=== PATIENT | female | born 1960 | race African-American/Black ===

== ENCOUNTER 2016-09-11 15:56 | Emergency (ER) | payer OTHER, BC ==
[~2016-09-11] VITALS: Ht 160 cm; Wt 96.6 kg
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
[2016-09-11 16:35] VITALS: BP 142/80
[2016-09-11] MEDS ORDERED: IBUP-1060 PO (16:36)
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
== END 2016-09-11 16:56 | disposition home or self-care (01) ==
LOC: ER 15:56
DX: S63.501A Unspecified sprain of right wrist, initial encounter (principal); S00.511A Abrasion of lip, initial encounter; V43.62XA Car passenger injured in collision with other type car in traffic accident, initial encounter; Y93.89 Activity, other specified; Y92.410 Unspecified street and highway as the place of occurrence of the external cause; Y99.8 Other external cause status
CPT/HCPCS: 29125; 73110; 99284-25